=== PATIENT | female | born 1965 | race African-American/Black ===

== ENCOUNTER 2020-04-22 15:11 | Outpatient (CLI) | payer OTHER, SELFPAY ==
--- NOTE | ~2020-04-22 | US_ITS ---
EXAMINATION: US venous doppler UE EXAM DATE: 04/22/2020 15:48 INDICATION: Left forearm contusion, pain. TECHNIQUE: Multiple grayscale, color flow, Doppler sonographic images of the left upper extremity vei ns obtained by technologist. Compression was performed where able. There is no prior study for ramon sofia. FINDINGS: Left upper extremity: Jugular vein: ------------> Normal. Subclavian vein: --------> Normal. Axillary vein:------------> Normal. Brachial vein:-----------> Normal. Basilic vein: ------------> Normal. Cephalic vein: ----------> Normal. Radial vein: ------------> Normal. Ulnar vein: > Normal. IMPRESSION: No deep venous thrombosis of the left upper extremity. Reviewed, dictated and finalized at location B. [facility] F[employer]ICATION
== END 2020-04-22 15:12 | disposition home or self-care (01) ==
LOC: ANHIMG 15:23
DX: S50.12XA Contusion of left forearm, initial encounter (principal)
CPT/HCPCS: 93971